=== PATIENT | female | born 1955 | race Caucasian/White ===

== ENCOUNTER 2021-03-31 14:14 | Inpatient (IN) | payer MEDICARE, OTHER ==
[~2021-03-31] VITALS: Ht 172.7 cm; Wt 53.8 kg
[2021-03-31] MEDS ORDERED: VERA180C PO (14:44)
[2021-03-31] MEDS ORDERED: PRED5TA PO (14:44)
[2021-03-31] MEDS ORDERED: LEVO50TA5 PO (14:44)
[2021-03-31] MEDS ORDERED: BUSP5TAB81 PO (14:44)
[2021-03-31] MEDS ORDERED: CLAR10CA3 PO (14:44)
[2021-03-31] MEDS ORDERED: COMBIVENT RESPIMAT 100-20MCG INHALER 4GM INH ONE (14:50)
[2021-03-31 15:00] LABS: ABG BASE EXCESS 8.8 (-2.0-2.0); ABG HCO3 35.3 MEQ/L (22.0-26.0); ABG O2 SATURATION 99.2 % (95.0-99.0); ABG PARTIAL PRESSURE CO2 56.5 mmHg (35.0-45.0); ABG PARTIAL PRESSURE O2 162.7 mmHg (75.0-100.0); ABG STANDARD HCO3 32.7 MEQ/L (22.0-26.0); ABG pH (ARTERIAL) 7.413 UNITS (7.350-7.450)
[2021-03-31 15:21] LABS: BASO % 0.2 % (0.0-1.0); EOS # 0.2 10^3/uL (0.0-0.5); EOS % 1.1 % (0.0-3.0); HEMATOCRIT 40.4 % (36.0-47.0); HEMOGLOBIN 12.5 g/dl (12.0-15.5); LYMPH # 0.9 10^3/uL (1.5-5.0); LYMPH % 6.4 % (24.0-44.0); MEAN CORPUSCULAR HGB CONC 30.9 g/dl (32.0-36.5); MEAN CORPUSCULAR VOLUME 93.7 fl (80.0-96.0); MONO # 0.4 10^3/uL (0.0-0.8); MONO % 2.6 % (2.0-8.0); NEUTROPHILS # 12.6 10^3/uL (1.5-8.5); PLATELET COUNT, AUTOMATED 343 10^3/uL (150-450); RED BLOOD COUNT 4.31 10^6/uL (4.00-5.40); WHITE BLOOD COUNT 14.1 10^3/uL (4.0-10.0)
[2021-03-31] MEDS ORDERED: SYMB16INH INH (15:31)
[2021-03-31] MEDS ORDERED: SPIR1CAP INH (15:31)
[2021-03-31] MEDS ORDERED: DOXY-350 PO (15:31)
[2021-03-31] MEDS ORDERED: PROAAER10 INH (15:31)
[2021-03-31] MEDS ORDERED: SERT-141 PO (15:31)
[2021-03-31] MEDS ORDERED: PANT40TA29 PO (15:31)
[2021-03-31] MEDS ORDERED: ASPI81CH33 PO (15:31)
[2021-03-31] MEDS ORDERED: PRAV10TA3 PO (15:31)
[2021-03-31] MEDS ORDERED: LISI5TAB11 PO (15:31)
[2021-03-31 15:48] LABS: CK-MB VALUE MASS 1.5 NG/ML (<3.6); CPK CREATINE PHOSPHOKINASE 39 U/L (26-192); MB/CK RELATIVE INDEX 3.85 (< OR =4); TROPONIN I < 0.02 NG/ML (< 0.10)
[2021-03-31 15:53] LABS: ALBUMIN 3.4 GM/DL (3.2-5.2); ALT/SGPT 38 U/L (12-78); BILIRUBIN,DIRECT 0.2 MG/DL (0.0-0.2); BILIRUBIN,TOTAL 0.5 MG/DL (0.2-1.0); BLOOD UREA NITROGEN 20 MG/DL (7-18); CALCIUM LEVEL 9.4 MG/DL (8.8-10.2); CARBON DIOXIDE LEVEL 35 MEQ/L (21-32); CHLORIDE LEVEL 97 MEQ/L (98-107); CREATININE FOR GFR 0.82 MG/DL (0.55-1.30); GLOMERULAR FILTRATION RATE > 60.0 (>45); GLUCOSE, FASTING 136 MG/DL (70-100); NT-PRO BNP 133 PG/ML (<125); POTASSIUM SERUM 4.3 MEQ/L (3.5-5.1); SODIUM LEVEL 140 MEQ/L (136-145); TOTAL PROTEIN 6.8 GM/DL (6.4-8.2)
[2021-03-31] MEDS ORDERED: IPRATROPIUM 0.5MG/ALBUTEROL 2.5MG INH SOL UD 3ML (DUONEB) NEB ONE (16:20)
[2021-03-31] MEDS ORDERED: ISOVUE-370 76% 100ML VIAL As Ordered ONE (16:22)
[2021-03-31] MEDS ORDERED: MEROPENEM INJ 1 GM in IV 1 EA IV ONE (18:00)
[2021-03-31] MEDS ORDERED: methylPREDNISolone 125MG 2ML VIAL IV ONE (18:25)
[2021-03-31] MEDS: SYMBICORT 160/4.5MCG INHALER 6GM INH SCH (19:30)
[2021-03-31] MEDS ORDERED: LEVO25TA5 PO (19:31)
[2021-03-31] MEDS ORDERED: BUDE0.5S6 INH (19:31)
[2021-03-31] MEDS ORDERED: ASPI81TA26 PO (19:31)
[2021-03-31] MEDS: IPRATROPIUM 0.02% SOLN 0.5MG 2.5ML NEB NEB SCH ×2 (19:31→23:35)
[2021-03-31 19:34] LABS: FREE T4 1.51 NG/DL (0.76-1.46)
[2021-03-31] MEDS ORDERED: HOME MED LIST COMPLETE! XX SCH (19:35)
[2021-03-31 20:00] VITALS: BP 96/57
[2021-03-31] MEDS: LEVALBUTEROL 1.25 MG/0.5 ML CONCENTRATE NEB NEB SCH ×2 (20:00→23:34)
[2021-03-31] MEDS ORDERED: LEVALBUTEROL HFA 45MCG/ACT 15 GM INHALER INH SCH (20:00)
[2021-03-31] MEDS: VERAPAMIL 180MG EXTENDED RELEASE TABLET PO SCH (21:00)
[2021-03-31] MEDS: SERTRALINE HCL 50 MG TAB PO SCH (21:02)
[2021-03-31] MEDS: HEPARIN SOD (PORCINE) 5000UNITS/ML 1ML VIAL/SYRINGE SC SCH (21:03)
[2021-03-31] MEDS: DOXYCYCLINE HYCLATE 100MG TABLET PO SCH (21:03)
[2021-03-31] MEDS: busPIRone 5 MG TAB PO SCH (21:03)
[2021-04-01] VITALS: BP 120/61
[2021-04-01] MEDS: IPRATROPIUM 0.02% SOLN 0.5MG 2.5ML NEB NEB SCH ×5 (03:41→19:43)
[2021-04-01] MEDS: LEVALBUTEROL 1.25 MG/0.5 ML CONCENTRATE NEB NEB SCH ×3 (03:41→11:04)
[2021-04-01 04:00] VITALS: BP 106/61
[2021-04-01 05:20] LABS: HEMATOCRIT 37.9 % (36.0-47.0); HEMOGLOBIN 11.7 g/dl (12.0-15.5); MEAN CORPUSCULAR HGB CONC 30.9 g/dl (32.0-36.5); PLATELET COUNT, AUTOMATED 304 10^3/uL (150-450); RED BLOOD COUNT 4.03 10^6/uL (4.00-5.40); WHITE BLOOD COUNT 4.6 10^3/uL (4.0-10.0)
[2021-04-01 05:48] LABS: ALT/SGPT 31 U/L (12-78); BILIRUBIN,TOTAL 0.3 MG/DL (0.2-1.0); BLOOD UREA NITROGEN 28 MG/DL (7-18); CALCIUM LEVEL 9.3 MG/DL (8.8-10.2); CARBON DIOXIDE LEVEL 37 MEQ/L (21-32); CHLORIDE LEVEL 97 MEQ/L (98-107); CREATININE FOR GFR 0.95 MG/DL (0.55-1.30); GLOMERULAR FILTRATION RATE > 60.0 (>45); GLUCOSE, FASTING 161 MG/DL (70-100); MAGNESIUM LEVEL 2.4 MG/DL (1.8-2.4); PHOSPHORUS LEVEL 5.3 MG/DL (2.5-4.9); POTASSIUM SERUM 5.1 MEQ/L (3.5-5.1); SODIUM LEVEL 139 MEQ/L (136-145); TOTAL PROTEIN 6.4 GM/DL (6.4-8.2)
[2021-04-01] MEDS ORDERED: MEROPENEM INJ 1 GM in IV 1 EA IV SCH (06:00)
[2021-04-01] MEDS: LEVOTHYROXINE 25MCG TABLET (0.025MG) PO SCH (06:11)
[2021-04-01] MEDS: HEPARIN SOD (PORCINE) 5000UNITS/ML 1ML VIAL/SYRINGE SC SCH ×3 (06:12→20:38)
[2021-04-01] MEDS: SYMBICORT 160/4.5MCG INHALER 6GM INH SCH ×2 (07:20→19:43)
[2021-04-01 08:00] VITALS: BP 146/72
[2021-04-01] MEDS: ASPIRIN 81MG ENTERIC TABLET PO SCH (08:04)
[2021-04-01] MEDS: DOXYCYCLINE HYCLATE 100MG TABLET PO SCH ×2 (08:04→20:37)
[2021-04-01] MEDS: PANTOPRAZOLE 40MG TAB (PROTONIX) PO SCH (08:04)
[2021-04-01] MEDS: methylPREDNISolone 40MG 1ML VIAL IV SCH ×2 (08:05→16:41)
[2021-04-01] MEDS: lisinopriL 5 MG TAB PO SCH (08:07)
[2021-04-01] MEDS: PRAVASTATIN 10 MG TAB PO SCH (08:54)
[2021-04-01] MEDS: busPIRone 5 MG TAB PO SCH ×2 (08:54→20:37)
[2021-04-01 12:00] VITALS: BP 136/66
[2021-04-01 16:00] VITALS: BP 123/59
[2021-04-01] MEDS ORDERED: ARIPiprazole 2 MG TAB PO ONE (19:45)
[2021-04-01 19:47] VITALS: BP 131/66
[2021-04-01] MEDS: SERTRALINE HCL 50 MG TAB PO SCH (20:37)
[2021-04-01] MEDS: VERAPAMIL 180MG EXTENDED RELEASE TABLET PO SCH (20:37)
[2021-04-02] VITALS (8 sets, daily range): BP systolic 137–164; BP diastolic 67–86
[2021-04-02] MEDS: methylPREDNISolone 40MG 1ML VIAL IV SCH ×4 (00:36→23:33)
[2021-04-02] MEDS: IPRATROPIUM 0.02% SOLN 0.5MG 2.5ML NEB NEB SCH ×7 (03:19→23:24)
[2021-04-02 05:28] LABS: MEAN CORPUSCULAR HEMOGLOBIN 28.9 pg (27.0-33.0); MEAN CORPUSCULAR HGB CONC 30.6 g/dl (32.0-36.5); MEAN CORPUSCULAR VOLUME 94.5 fl (80.0-96.0); PLATELET COUNT, AUTOMATED 276 10^3/uL (150-450); RED BLOOD COUNT 3.81 10^6/uL (4.00-5.40)
[2021-04-02] MEDS: LEVOTHYROXINE 25MCG TABLET (0.025MG) PO SCH (05:50)
[2021-04-02] MEDS: HEPARIN SOD (PORCINE) 5000UNITS/ML 1ML VIAL/SYRINGE SC SCH ×3 (05:50→20:10)
[2021-04-02 05:59] LABS: BLOOD UREA NITROGEN 36 MG/DL (7-18); CALCIUM LEVEL 8.9 MG/DL (8.8-10.2); CARBON DIOXIDE LEVEL 33 MEQ/L (21-32); CHLORIDE LEVEL 104 MEQ/L (98-107); CREATININE FOR GFR 0.72 MG/DL (0.55-1.30); GLOMERULAR FILTRATION RATE > 60.0 (>45); GLUCOSE, FASTING 138 MG/DL (70-100); MAGNESIUM LEVEL 2.1 MG/DL (1.8-2.4); PHOSPHORUS LEVEL 3.7 MG/DL (2.5-4.9); POTASSIUM SERUM 4.9 MEQ/L (3.5-5.1); SODIUM LEVEL 142 MEQ/L (136-145)
[2021-04-02] MEDS: SYMBICORT 160/4.5MCG INHALER 6GM INH SCH ×2 (08:14→19:18)
[2021-04-02] MEDS: ASPIRIN 81MG ENTERIC TABLET PO SCH (10:06)
[2021-04-02] MEDS: PANTOPRAZOLE 40MG TAB (PROTONIX) PO SCH (10:07)
[2021-04-02] MEDS: busPIRone 5 MG TAB PO SCH ×2 (10:07→20:10)
[2021-04-02] MEDS: DOXYCYCLINE HYCLATE 100MG TABLET PO SCH ×2 (10:09→20:10)
[2021-04-02] MEDS: lisinopriL 5 MG TAB PO SCH (10:10)
[2021-04-02] MEDS: PRAVASTATIN 10 MG TAB PO SCH (10:11)
[2021-04-02] MEDS: SERTRALINE HCL 50 MG TAB PO SCH (20:10)
[2021-04-02] MEDS: VERAPAMIL 180MG EXTENDED RELEASE TABLET PO SCH (20:10)
[2021-04-03] VITALS: BP 144/82
[2021-04-03] MEDS: IPRATROPIUM 0.02% SOLN 0.5MG 2.5ML NEB NEB SCH ×4 (03:48→15:06)
[2021-04-03 04:00] VITALS: BP 117/76
[2021-04-03 05:11] LABS: HEMATOCRIT 36.6 % (36.0-47.0); HEMOGLOBIN 10.9 g/dl (12.0-15.5); MEAN CORPUSCULAR HEMOGLOBIN 28.6 pg (27.0-33.0); MEAN CORPUSCULAR HGB CONC 29.8 g/dl (32.0-36.5); MEAN CORPUSCULAR VOLUME 96.1 fl (80.0-96.0); PLATELET COUNT, AUTOMATED 271 10^3/uL (150-450); RED BLOOD COUNT 3.81 10^6/uL (4.00-5.40); WHITE BLOOD COUNT 12.1 10^3/uL (4.0-10.0)
[2021-04-03 05:31] LABS: BLOOD UREA NITROGEN 29 MG/DL (7-18); CALCIUM LEVEL 8.8 MG/DL (8.8-10.2); CARBON DIOXIDE LEVEL 36 MEQ/L (21-32); CHLORIDE LEVEL 103 MEQ/L (98-107); CREATININE FOR GFR 0.59 MG/DL (0.55-1.30); GLOMERULAR FILTRATION RATE > 60.0 (>45); GLUCOSE, FASTING 132 MG/DL (70-100); MAGNESIUM LEVEL 2.1 MG/DL (1.8-2.4); PHOSPHORUS LEVEL 3.3 MG/DL (2.5-4.9); POTASSIUM SERUM 5.1 MEQ/L (3.5-5.1); SODIUM LEVEL 143 MEQ/L (136-145)
[2021-04-03] MEDS: HEPARIN SOD (PORCINE) 5000UNITS/ML 1ML VIAL/SYRINGE SC SCH ×2 (06:11→13:05)
[2021-04-03] MEDS: LEVOTHYROXINE 25MCG TABLET (0.025MG) PO SCH (06:11)
[2021-04-03] MEDS: SYMBICORT 160/4.5MCG INHALER 6GM INH SCH (07:24)
[2021-04-03 07:51] VITALS: BP 162/80
[2021-04-03] MEDS: methylPREDNISolone 40MG 1ML VIAL IV SCH ×2 (08:33→14:50)
[2021-04-03] MEDS: DOXYCYCLINE HYCLATE 100MG TABLET PO SCH (08:34)
[2021-04-03] MEDS: busPIRone 5 MG TAB PO SCH (08:34)
[2021-04-03] MEDS: ASPIRIN 81MG ENTERIC TABLET PO SCH (08:34)
[2021-04-03] MEDS: lisinopriL 5 MG TAB PO SCH (08:34)
[2021-04-03] MEDS: PANTOPRAZOLE 40MG TAB (PROTONIX) PO SCH (08:34)
[2021-04-03] MEDS: PRAVASTATIN 10 MG TAB PO SCH (08:34)
[2021-04-03] MEDS: LEVALBUTEROL 1.25 MG/0.5 ML CONCENTRATE NEB INH SCH ×2 (11:14→15:06)
[2021-04-03 11:27] VITALS: BP 158/70
[2021-04-03] MEDS ORDERED: PRED10TA2 PO (11:29)
[2021-04-03] MEDS ORDERED: LORazepam 1 MG TAB PO PRN (11:30)
[2021-04-03] MEDS ORDERED: MORPHINE 2 MG/ML 1ML VIAL (J2270) IV PRN (11:30)
[2021-04-03] MEDS ORDERED: HYOS125TA PO (11:47)
[2021-04-03] MEDS ORDERED: ATIV1TAB10 PO ×2 (11:47→12:50)
[2021-04-03] MEDS ORDERED: MORP1SOL5 PO ×2 (11:47→12:50)
[2021-04-03] MEDS ORDERED: MORPHINE 10MG/0.5ML ORAL CONCENTRATE SOLUTION U/D SL ONE (16:15)
== END 2021-04-03 16:30 | disposition hospice, home (50) | DRG 191 ==
LOC: M ED 14:14 → M ED INP 18:24 → ENRESERV 18:52 → M PCU 20:00
PROVIDERS: ADMIT Internal Medicine; ATTEND Internal Medicine
DX: J44.1 Chronic obstructive pulmonary disease with (acute) exacerbation (principal); I31.3 Pericardial effusion (noninflammatory); I25.10 Atherosclerotic heart disease of native coronary artery without angina pectoris; I10 Essential (primary) hypertension; E03.9 Hypothyroidism, unspecified; F41.9 Anxiety disorder, unspecified; F32.A Depression, unspecified; Z51.5 Encounter for palliative care; Z66 Do not resuscitate; Z79.82 Long term (current) use of aspirin; Z79.899 Other long term (current) drug therapy; Z88.0 Allergy status to penicillin; Z88.1 Allergy status to other antibiotic agents; Z88.8 Allergy status to other drugs, medicaments and biological substances; Z87.891 Personal history of nicotine dependence; Z99.81 Dependence on supplemental oxygen